=== PATIENT | female | born 1975 | race Native Hawaiian/Other Pacific Islander ===

== ENCOUNTER 2020-12-21 11:32 | Outpatient (CLI) | payer BC | END 2020-12-21 22:06 | disposition home or self-care (01) | LOC: MAMMO 11:32 | PROVIDERS: ATTEND Family Medicine | DX: Z12.31 Encounter for screening mammogram for malignant neoplasm of breast (principal) ==

== ENCOUNTER 2021-04-16 10:26 | Outpatient (CLI) | payer BC | END 2021-04-16 19:41 | disposition home or self-care (01) | LOC: US 10:26 | PROVIDERS: ATTEND Family Medicine | DX: R92.8 Other abnormal and inconclusive findings on diagnostic imaging of breast (principal) ==